=== PATIENT | male | born 1935 | race Hispanic/Latino ===

== ENCOUNTER 2020-01-12 14:50 | Emergency (ER) | payer MEDICARE ==
[~2020-01-12] VITALS: Ht 160 cm; Wt 68.0 kg
[~2020-01-12 14:50] MED LIST: CEPHALEXIN500 MG PO; OMEPRAZOLE MAGN20 MG PO; ULTRAM50 MG PO; Z.0.LOVASTATIN40 MG; [UNRECOGNIZED DRUG - OTHER]
[2020-01-12] MEDS ORDERED: ONDANSETRON HCL INJ 2MG/ML 2ML 2 MG/ML VIAL IV STA (16:38)
[2020-01-12] MEDS ORDERED: SODIUM CHLORIDE 0.9% 1000ML 1,000 ML IV STA (16:38)
[2020-01-12] MEDS ORDERED: SODIUM CHLORIDE FLUSH 10 ML SYR INJ PRN (16:45)
[2020-01-12] MEDS ORDERED: LORAZEPAM INJ 2 MG/ML VIAL IV ONE (16:45)
[2020-01-12] MEDS ORDERED: LORAZEPAM INJ 2 MG/ML VIAL ONE (16:46)
[2020-01-12] MEDS ORDERED: ONDANSETRON HCL INJ 2MG/ML 2ML 2 MG/ML VIAL ONE (16:47)
[2020-01-12] MEDS ORDERED: SODIUM CHLORIDE 0.9% 1000ML 1,000 ML ONE (16:47)
[2020-01-12 16:57] LABS: BASOPHILS # (AUTO) 0.1 (0.0-0.1); BASOPHILS % 0.5 % (0.0-1.0); EOSINOPHILS # (AUTO) 0.1 (0.0-0.4); EOSINOPHILS % 0.6 % (0.0-6.0); HEMATOCRIT 40.1 % (38.2-49.6); HEMOGLOBIN 13.5 g/dL (14.0-18.0); LYMPHOCYTES # (AUTO) 0.8 (1.0-3.2); LYMPHOCYTES % 7.9 % (18.0-39.1); MEAN CORPUSCULAR HEMOGLOBIN 30.3 pg (28-32); MEAN CORPUSCULAR HGB CONC 33.7 g/dL (31-35); MEAN CORPUSCULAR VOLUME 90.1 fL (81-99); MONOCYTES # (AUTO) 0.5 (0.2-0.8); MONOCYTES % 4.5 % (4.4-11.3); NEUTROPHILS # (AUTO) 8.7 (2.1-6.9); NEUTROPHILS % 85.8 % (38.7-80.0); PLATELET COUNT 131 x10e3/uL (140-360); RED BLOOD COUNT 4.45 x10e6/uL (4.3-5.7); RED CELL DISTRIBUTION WIDTH 13.2 % (11.7-14.4)
[2020-01-12 17:13] LABS: ALANINE AMINOTRANSFERASE 9 IU/L (0-55); ALBUMIN 3.8 g/dL (3.5-5.0); ALBUMIN/GLOBULIN RATIO 1.1 (0.8-2.0); ALKALINE PHOSPHATASE 107 IU/L (40-150); ANION GAP 12.7 mmol/L (8-16); BLOOD UREA NITROGEN 19 mg/dL (7-26); BUN/CREATININE RATIO 23 (6-25); CALCIUM 8.8 mg/dL (8.4-10.2); CARBON DIOXIDE 24 mmol/L (22-29); CHLORIDE 104 mmol/L (98-107); CREATINE KINASE 27 IU/L (30-200); CREATININE, SERUM 0.83 mg/dL (0.72-1.25); EST GLOMERULAR FILTRATION RATE > 60 ML/MIN (60-); GLUCOSE 126 mg/dL (74-118); POTASSIUM 3.7 mmol/L (3.5-5.1); SODIUM 137 mmol/L (136-145)
--- NOTE | 2020-01-12 18:34 | Diagnostic Imaging Report ---
EXAMINATION: Head CT HISTORY: Dizziness, headache COMPARISON: None. TECHNIQUE: Helical axial images of the head were obtained. Reformatted coronal and sagittal images from the axial data. Dose modulation, iterative reconstruction, and/or weight based adjustment of the mA/kV was utilized to reduce the radiation dose to as low as reasonably achievable. FINDINGS: Parenchyma: 1. Few scattered white matter hypodensities, most likely corresponds to nonspecific chronic microvascular ischemic changes. 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 2. No mass or hemorrhage. No CT evidence of acute territorial vascular insult. Extra-axial spaces:No abnormal density. No extra-axial fluid collections Brain volume: Normal for age. Ventricles: No hydrocephalus or displacement. Arteries: No density suggestive of thrombus. Dural sinuses: No abnormal density. Foramen magnum: No mass, Chiari malformation, or basilar invagination. Sella: No obvious mass. Paranasal/mastoid sinuses: Imaged portions unremarkable. Skull/Scalp: No lytic or blastic lesions. No fractures. IMPRESSION: Mild white matter chronic microvascular ischemic changes, otherwise no intracranial abnormalities. Signed by: Dr. Mecca Marrufo M.D. on 01/12/2020 6:31 PM
[2020-01-12] MEDS ORDERED: MECLIZINE HCL12.5 MG PO (18:49)
[2020-01-12] MEDS ORDERED: ONDANSETRON ODT8 MG PO (18:49)
[2020-01-12] MEDS ORDERED: AUGMENTIN 875-1 EACH PO (18:49)
--- NOTE | 2020-01-12 18:49 | Emergency Department Note ---
History of Present Illnes History of Present Illness Chief Complaint: General Medicine Complaints History of Present Illness This is a 84 year old male . Historian: Patient Arrival Mode: Car Past Medical/Family History Physician Review I have reviewed the patient's past medical and family history. Any updates have been documented here. Past Medical History Recent Fever: No Clinical Suspicion of Infectio: No New/Unexplained Change in Ment: No Past Medical History: GERD, Hyperlipedemia Other Medical History: HEADACHES, HYPERCHOLESTEREMIA, GERD Other Surgery: PROSTATE, NECK SX Social History Smoking Cessation: Former smoker Counseling Performed: No Alcohol Use: None Any Illegal Drug Use: No Other Last Tetanus: UNK Any Pre-Existing Lines (PICC,: No Physical Exam Related Data Allergies: Coded Allergies: hydrocodone (Verified Allergy, Mild, N/V/DIZZY, 10/29/15) No Known Drug Allergies (Verified Allergy, Unknown, 01/15/09) Triage Vital Signs Vital Signs Date Time Temp Pulse Resp B/P (MAP) Pulse Ox O2 Delivery O2 Flow Rate FiO2 01/12/20 15:25 97.9 54 17 154/79 100 Room Air Physical Exam CONSTITUTIONAL HENT EYES NECK PULMONARY CARDIOVASCULAR GASTROINTESTINAL GENITOURINARY SKIN MUSCULOSKELETAL NEUROLOGICAL PSYCHOLOGICAL Results Laboratory Result Diagram: 01/12/20 1630 01/12/20 1630 Laboratory Laboratory Tests Test 01/12/20 16:30 White Blood Count 10.11 x10e3/uL (4.8-10.8) Red Blood Count 4.45 x10e6/uL (4.3-5.7) Hemoglobin 13.5 g/dL (14.0-18.0) Hematocrit 40.1 % (38.2-49.6) Mean Corpuscular Volume 90.1 fL (81-99) Mean Corpuscular Hemoglobin 30.3 pg (28-32) Mean Corpuscular Hemoglobin Concent 33.7 g/dL (31-35) Red Cell Distribution Width 13.2 % (11.7-14.4) Platelet Count 131 x10e3/uL (140-360) Neutrophils (%) (Auto) 85.8 % (38.7-80.0) Lymphocytes (%) (Auto) 7.9 % (18.0-39.1) Monocytes (%) (Auto) 4.5 % (4.4-11.3) Eosinophils (%) (Auto) 0.6 % (0.0-6.0) Basophils (%) (Auto) 0.5 % (0.0-1.0) Neutrophils # (Auto) 8.7 (2.1-6.9) Lymphocytes # (Auto) 0.8 (1.0-3.2) Monocytes # (Auto) 0.5 (0.2-0.8) Eosinophils # (Auto) 0.1 (0.0-0.4) Basophils # (Auto) 0.1 (0.0-0.1) Absolute Immature Granulocyte (auto 0.07 x10e3/uL (0-0.1) Sodium Level 137 mmol/L (136-145) Potassium Level 3.7 mmol/L (3.5-5.1) Chloride Level 104 mmol/L (98-107) Carbon Dioxide Level 24 mmol/L (22-29) Anion Gap 12.7 mmol/L (8-16) Blood Urea Nitrogen 19 mg/dL (7-26) Creatinine 0.83 mg/dL (0.72-1.25) Estimat Glomerular Filtration Rate > 60 ML/MIN (60-) BUN/Creatinine Ratio 23 (6-25) Glucose Level 126 mg/dL (74-118) Calcium Level 8.8 mg/dL (8.4-10.2) Total Bilirubin 0.4 mg/dL (0.2-1.2) Aspartate Amino Transf (AST/SGOT) 11 IU/L (5-34) Alanine Aminotransferase (ALT/SGPT) 9 IU/L (0-55) Alkaline Phosphatase 107 IU/L (40-150) Creatine Kinase 27 IU/L (30-200) Creatine Kinase MB 1.20 ng/mL (0-5.0) Troponin I 0.004 ng/mL (0-0.300) Total Protein 7.4 g/dL (6.5-8.1) Albumin 3.8 g/dL (3.5-5.0) Globulin 3.6 g/dL (2.3-3.5) Albumin/Globulin Ratio 1.1 (0.8-2.0) Assessment & Plan Medical Decision Making MDM VERTIGO, OM, MASTOIDITIS Assessment & Plan Final Impression: (1) Benign paroxysmal vertigo (2) Otitis media Depart Disposition: HOME, SELF-CARE Last Vital Signs Date Time Temp Pulse Resp B/P (MAP) Pulse Ox O2 Delivery O2 Flow Rate FiO2 01/12/20 15:25 97.9 54 17 154/79 100 Room Air Home Meds Active Scripts Amoxicillin/Potassium Clav (AUGMENTIN 875-125 TABLET) 1 Each Tablet, 875 MG PO Q12H, #20 TAB Prov:YOHANNES MYERS 01/12/20 Meclizine Hcl (MECLIZINE HCL) 12.5 Mg Tablet, 25 MG PO Q8H PRN for DIZZINESS, #30 TAB Prov:YOHANNES MYERS 01/12/20 Ondansetron (ONDANSETRON ODT) 8 Mg Tab.rapdis, 4 MG PO Q4HR, #30 TAB Prov:YOHANNES MYERS 01/12/20 Reported Medications Cephalexin (CEPHALEXIN) 500 Mg Capsule, 500 MG PO QID, CAP 10/29/15 Omeprazole Magnesium (OMEPRAZOLE MAGNESIUM) 20 Mg Capsule.dr, 20 MG PO BID 10/29/15 Tramadol Hcl (ULTRAM) 50 Mg Tablet, 50 MG PO Q8H PRN for PAIN, TAB 10/29/15 Sulindac (Sulindac) 200 Mg Tablet, BID 05/10/11 Medications in the ED Lorazepam 2 mg STK-MED ONCE .ROUTE ; Start 01/12/20 at 16:46; Stop 01/12/20 at 16:40; Status DC Ondansetron HCl 4 mg STK-MED ONCE .ROUTE ; Start 01/12/20 at 16:47; Stop 01/12/20 at 16:40; Status DC Sodium Chloride 1,000 ml @ STK-MED ONCE .ROUTE ; Start 01/12/20 at 16:47; Stop 01/12/20 at 16:41; Status DC Sodium Chloride 10 ml PRN PRN INJ IV SITE FLUSH Last administered on 01/12/20at 16:50; Admin Dose 10 ML; Start 01/12/20 at 16:45; Stop 02/11/20 at 16:44 Ondansetron HCl 4 mg NOW STAT IV Last administered on 01/12/20at 16:50; Admin Dose 4 MG; Start 01/12/20 at 16:38; Stop 01/12/20 at 16:45; Status DC Lorazepam 1 mg ONCE ONCE IV Last administered on 01/12/20at 16:50; Admin Dose 1 MG; Start 01/12/20 at 16:45; Stop 01/12/20 at 16:46; Status DC Sodium Chloride 1,000 ml @ 1,000 mls/hr Q1H STAT IV Last administered on 01/12/20at 16:50; Admin Dose 1,000 MLS/HR; Start 01/12/20 at 16:38; Stop 01/12/20 at 17:37; Status DC YOHANNES MYERS Jan 12, 2020 18:49
== END 2020-01-12 19:20 | disposition home or self-care (01) ==
LOC: ER 15:35
DX: H81.10 Benign paroxysmal vertigo, unspecified ear (principal); H66.93 Otitis media, unspecified, bilateral; E78.5 Hyperlipidemia, unspecified; K21.9 Gastro-esophageal reflux disease without esophagitis
CPT/HCPCS: 36415; 70450; 80053; 82550; 82553; 84484; 85025; 99284; J2060; J2405; J7030